=== PATIENT | male | born 1980 | race Two or more races ===

== ENCOUNTER 2023-05-31 15:01 | Emergency (ER) | payer MEDICAID ==
[~2023-05-31] VITALS: Ht 172.7 cm; Wt 114.7 kg
[2023-05-31 15:10] VITALS: BP 109/76
[2023-05-31 18:34] VITALS: PULSE 84; RESP 16; TEMP 98.6; O2SAT 95
[2023-05-31] MEDS ORDERED: KETOROLAC TROMETH 60MG/2ML VIAL IM ONE (20:15)
[2023-05-31] MEDS ORDERED: IBUP-1456 PO (20:23)
== END 2023-05-31 21:37 | disposition home or self-care (01) ==
LOC: ER 15:01
DX: S46.911A Strain of unspecified muscle, fascia and tendon at shoulder and upper arm level, right arm, initial encounter (principal); X50.0XXA Overexertion from strenuous movement or load, initial encounter; Y93.89 Activity, other specified; Y92.89 Other specified places as the place of occurrence of the external cause; Y99.8 Other external cause status
CPT/HCPCS: 73060; 96372; 99283; J1885